=== PATIENT | female | born 1975 | race Caucasian/White ===

== ENCOUNTER 2017-03-30 05:40 | Emergency (ER) | payer OTHER ==
[2017-03-30 05:57] VITALS: BP 132/83; PULSE 100; TEMP 98.2; BMI 26.3
--- NOTE | 2017-03-30 06:52 | PDOC ---
History of Present Illness - General History Source: Patient Exam Limitations: No Limitations - History of Present Illness Initial Comments: 03/30/17 06:57 The patient is a 42-year-old female, with a significant past medical history of MS, who presents to the ED with a flare up of chronic spasms. Pt states that the medications she usually takes for her flare ups are not working. She admits to vomiting and diarrhea. Patient denies any fever. She denies any chest pain, headache, or shortness of breath. She denies any recent travel. PCP: Dr. Dylan Kidd <June Gunn - Last Filed: 03/30/17 06:57> - General History Source: Patient <Daniel March - Last Filed: 03/30/17 19:35> - General Stated Complaint: PAIN/MS Time Seen by Provider: 03/30/17 06:52 Past History <June Gunn - Last Filed: 03/30/17 06:57> - Past Medical History Other medical history: MS - Immunization History Immunization Up to Date: Yes - Psycho/Social/Smoking Cessation Hx Anxiety: Yes Suicidal Ideation: No Smoking Status: Yes Smoking History: Current every day smoker Have you smoked in the past 12 months: Yes Number of Cigarettes Smoked Daily: 7 Information on smoking cessation initiated: No 'Breaking Loose' booklet given: 03/16/14 Hx Alcohol Use: No Drug/Substance Use Hx: No Substance Use Type: None <Daniel March - Last Filed: 03/30/17 19:35> - Past Medical History Allergies/Adverse Reactions: Allergies Allergy/AdvReac Type Severity Reaction Status Date / Time No Known Allergies Allergy Verified 03/30/17 05:55 Home Medications: Ambulatory Orders Baclofen 10 mg PO TID 03/30/17 Pramipexole Di-HCl [Mirapex] 0.25 mg PO BID 03/30/17 Teriflunomide [Aubagio] 14 mg PO ASDIR 03/30/17 Review of Systems - Review of Systems Able to Perform ROS?: Yes Comments:: 03/30/17 06:57 CONSTITUTIONAL: Absent: fever, no chills, no fatigue EYES: Absent: visual changes ENT: Absent: ear pain, no sore throat CARDIOVASCULAR: Absent: chest pain, no palpitations RESPIRATORY: Absent: cough, no SOB GI: Absent: abdominal pain, no nausea, no vomiting, no constipation, no diarrhea GENITOURINARY: Absent: dysuria, no frequency, no hematuria MUSKULOSKELETAL: Present: spasms Absent: back pain, no arthralgia SKIN: Absent: rash NEURO: Absent: headache <June Gunn - Last Filed: 03/30/17 06:57> *Physical Exam - Vital Signs Last Vital Signs Temp Pulse Resp BP Pulse Ox 98.2 F 100 H 16 132/83 96 03/30/17 05:55 03/30/17 05:55 03/30/17 05:55 03/30/17 05:55 03/30/17 05:55 - Physical Exam Comments: 03/30/17 06:58 GENERAL: Well-appearing, well-nourished. +Mild distress HEENT: Normocephalic, atraumatic. PERRL, EOM intact. CARDIOVASCULAR: Normal S1, S2. Regular rate and rhythm. PULMONARY: Clear to auscultation bilaterally. ABDOMEN: Soft, non-distended, non-tender. EXTREMITIES: Normal ROM in all four extremities. No gross deformities. SKIN: Warm, dry. No rash NEUROLOGICAL: Good motor tone. Able to ambulate well but amidst of exam she has spontaneous spasms. <Luis AJune - Last Filed: 03/30/17 06:57> - Vital Signs Last Vital Signs Temp Pulse Resp BP Pulse Ox 98.2 F 100 H 16 132/83 96 03/30/17 05:55 03/30/17 05:55 03/30/17 05:55 03/30/17 05:55 03/30/17 05:55 <Daniel March - Last Filed: 03/30/17 19:35> ED Treatment Course - LABORATORY CBC & Chemistry Diagram: 03/30/17 07:08 03/30/17 07:08 <Daniel March - Last Filed: 03/30/17 19:35> Medical Decision Making - Medical Decision Making 03/30/17 19:34 Dr. March: The scribe's documentation has been prepared under my direction and personally reviewed by me in its entirery. I confirm that the note above accurately reflects all work, treatment, procedures, and medical decision making performed by me. <Daniel March - Last Filed: 03/30/17 19:35> *DC/Admit/Observation/Transfer - Attestations Scribe Attestion: 03/30/17 06:59 Documentation prepared by June Gunn, acting as medical care evaluation specialist for Daniel March MD. <June Gunn - Last Filed: 03/30/17 06:57> - Discharge Dispostion Admit: Yes <Daniel March - Last Filed: 03/30/17 19:35> Diagnosis at time of Disposition: Muscle spasm - Discharge Dispostion Disposition: ELOPED Condition at time of disposition: Stable - Referrals Referrals: Dylan Kidd MD [Primary Care Provider] - - Patient Instructions Printed Discharge Instructions: DI for Back Spasm
[2017-03-30] MEDS ORDERED: SODIUM CHLORIDE 1,000 ML IV STA (06:53)
[2017-03-30] MEDS ORDERED: LORAZEPAM CARPU-JECT 2 MG/ML DISP.SYRIN IVPUSH ONE (06:54)
[2017-03-30 07:11] LABS: BASOPHIL 0.9 % (0-2.0); EOSINOPHIL 5.2 % (0-4.5); MCH 22.5 pg (25.7-33.7); MCHC 30.9 g/dl (32.0-36.0); MEAN CELL VOLUME 72.7 fl (80-96); MEAN PLT VOLUME 8.8 fl (7.5-11.1); NEUTROPHILS 51.7 % (42.8-82.8); PLATELET COUNT 257 K/MM3 (134-434); RDW 22.5 % (11.6-15.6); WHITE BLOOD COUNT 4.9 K/mm3 (4.0-10.0)
[2017-03-30] MEDS ORDERED: LORAZEPAM CARPU-JECT 2 MG/ML DISP.SYRIN ONE (07:23)
[2017-03-30 07:33] LABS: ALBUMIN 3.4 g/dl (3.4-5.0); ANION GAP 6 (8-16); BILIRUBIN,TOTAL 0.1 mg/dL (0.2-1.0); CO2 26 mmol/L (21-32); CREATININE 0.6 mg/dL (0.55-1.02); GLUCOSE,RANDOM 97 mg/dL (74-106); MAGNESIUM 1.9 mg/dL (1.8-2.4); SGOT/AST 24 U/L (15-37); SGPT/ALT 38 U/L (12-78); TOT PROT 6.7 g/dl (6.4-8.2)
[2017-03-30 07:34] LABS: ALK PHOS 66 U/L (45-117)
[2017-03-30] MEDS ORDERED: BACLOFEN 10 MG TABLET (FP) ONE (08:10)
[2017-03-30] MEDS: BACLOFEN 10 MG TABLET (FP) PO ONE ×2 (08:11→08:45)
--- NOTE | 2017-03-30 08:24 | PDOC ---
*Physical Exam - Vital Signs Last Vital Signs Temp Pulse Resp BP Pulse Ox 98.2 F 100 H 16 132/83 96 03/30/17 05:55 03/30/17 05:55 03/30/17 05:55 03/30/17 05:55 03/30/17 05:55 ED Treatment Course - LABORATORY CBC & Chemistry Diagram: 03/30/17 07:08 03/30/17 07:08 - ADDITIONAL ORDERS Additional order review: Laboratory Results 03/30/17 03/30/17 07:08 07:08 Sodium 140 Potassium 3.8 Chloride 108 H Carbon Dioxide 26 Anion Gap 6 L BUN 9 Creatinine 0.6 Creat Clearance w eGFR > 60 Random Glucose 97 Calcium 9.0 Magnesium 1.9 Total Bilirubin 0.1 L D AST 24 D ALT 38 D Alkaline Phosphatase 66 D Total Protein 6.7 Albumin 3.4 Lipase 207 Serum , Qual Negative 03/30/17 07:08 RBC 3.73 D MCV 72.7 L MCHC 30.9 L RDW 22.5 H D MPV 8.8 Neutrophils % 51.7 D Lymphocytes % 31.2 D Monocytes % 11.0 H D Eosinophils % 5.2 H D Basophils % 0.9 - Medications Given in the ED: ED Medications Discontinued Medications Generic Name Dose Route Start Last Admin Trade Name Freq PRN Reason Stop Dose Admin Baclofen 10 mg 03/30/17 07:56 03/30/17 08:11 Lioresal - PO 03/30/17 07:57 10 mg ONCE ONE Administration Sodium Chloride 1,000 mls @ 1,000 mls/hr 03/30/17 06:53 03/30/17 07:09 Normal Saline - IV 03/30/17 07:52 1,000 mls/hr ASDIR STA Administration Lorazepam 1 mg 03/30/17 06:54 03/30/17 07:09 Ativan Injection - IVPUSH 03/30/17 06:55 1 mg ONCE ONE Administration Medical Decision Making - Medical Decision Making 03/30/17 08:21 I received this patient on sign out she has a history of MS Pt states she has had symptoms for the past 2 weeks Pain last night was unbearable she presented to the ER this morning Given Ativan this morning she states it minimally helped Ordered pt for Baclofen She states this is what she has already been taking and it has not helped will contact pt Neurologist: Mannie Kidd, Office opens 8:30am 03/30/17 08:44 I have contacted this patient's Neurologist He apparently ordered the following and sent the following medications to her pharmacy Lexapro 20mg Pramipaxol 25mg Magnesium Imitrex Instead of Baclofen Tizanidine 4mg BID Amitriptyline 10mg bed time Prescriptions are already at [facility] in [place] The patient refused to stay in the ER while I spoke with her Neurologist I have called this patient at the number in the computer, no response and no voicemail message I have also attempted to call this patient's partner, no response 03/30/17 08:52 *DC/Admit/Observation/Transfer Diagnosis at time of Disposition: Muscle spasm - Discharge Dispostion Disposition: HOME Condition at time of disposition: Stable Admit: No - Referrals Referrals: Dylan Kidd MD [Primary Care Provider] - - Patient Instructions Printed Discharge Instructions: DI for Back Spasm - Post Discharge Activity
[2017-03-30 08:42] LABS: URINE APPEARANCE SLCLOUDY; URINE BILIRUBIN NEGATIVE (NEGATIVE); URINE BLOOD 2+ (NEGATIVE); URINE COLOR LTYELLOW; URINE GLUCOSE (UA) NEGATIVE (NEGATIVE); URINE KETONE NEGATIVE (NEGATIVE); URINE NITRITE NEGATIVE (NEGATIVE); URINE PROTEIN NEGATIVE (NEGATIVE); URINE UROBILINOGEN NEGATIVE mg/dL (0.2-1.0)
[2017-03-30 09:07] LABS: URINE LEUK ESTERASE 1+ (NEGATIVE)
[2017-03-30 09:16] LABS: URINE RBC <1 /hpf (0-3); URINE WBC 1 /hpf (3-5)
== END 2017-03-30 09:00 | disposition home or self-care (01) ==
LOC: JER 05:40 → SUPCPDRO 05:40 → JER 09:00
PROC: 3E033NZ Introduction of Analgesics, Hypnotics, Sedatives into Peripheral Vein, Percutaneous Approach (ICD-10-PCS; principal; 2017-03-30)
DX: M62.838 Other muscle spasm (principal); G35 Multiple sclerosis
CPT/HCPCS: 36415; 80053; 81003; 81015; 83690; 83735; 84703; 85025; 99283-25; J0475